=== PATIENT | female | born 1950 | race Caucasian/White ===

== ENCOUNTER 2019-03-09 18:27 | Inpatient (IN) | payer MEDICARE ==
[~2019-03-09] VITALS: Ht 172.7 cm; Wt 109.0 kg
[~2019-03-09 18:27] MED LIST: ALBU0.63 NEB; CEFD300C37 PO; FLUT1DIS IH; GUAI400T66 PO; PRED10TA PO; TIOT18CA INH
--- NOTE | 2019-03-09 18:53 | NUR ---
PT BIB [facility] FROM WORK AFTER PT BEGAN TO C/O SOB AND EPIGASTRIC PAIN WHICH HAD BEEN OCCURING INTERMITTENTLY OVER THE LAST 2 WEEKS. PT IS SUPPOSE TO WEAR OXYGEN 10/05 BUT DOES WEAR IT AT WORK. PT ON MONITOR. PT SEEN BY DR. SAAVEDRA, WAITING FOR ORDERS.
[2019-03-09] MEDS ORDERED: ASPIRIN 81 MG TABLET CHEW ONE (19:17)
[2019-03-09] MEDS ORDERED: ASPIRIN 81 MG TABLET CHEW PO ONE (19:30)
[2019-03-09 19:37] LABS: BASOPHILS # (AUTO) 0.04 x10^3/uL (0-0.1); BASOPHILS % (AUTO) 0 % (0-1); EOSINOPHILS # (AUTO) 0.11 x10^3/uL (0-0.4); EOSINOPHILS % (AUTO) 1 % (1-7); LYMPHOCYTES # (AUTO) 0.99 x10^3/uL (1-3.4); LYMPHOCYTES % (AUTO) 10 % (22-44); MD NO; MEAN CORPUSCULAR HEMOGLOBIN 29.7 pg (27.0-34.8); MEAN CORPUSCULAR HGB CONC 33.1 g/dL (32.4-35.8); MEAN CORPUSCULAR VOLUME 89.7 fL (80-100); MEAN PLATELET VOLUME 10.2 fL (7.4-10.4); MONOCYTES # (AUTO) 0.59 x10^3/uL (0.2-0.8); MONOCYTES % (AUTO) 6 % (2-9); NEUTROPHILS # (AUTO) 8.66 x10^3/uL (1.8-6.8); NEUTROPHILS % (AUTO) 83 % (42-75); PLATELET COUNT 212 x10^3/uL (130-400); RED BLOOD COUNT 5.31 x10^6/uL (3.82-5.3); RED CELL DISTRIBUTION WIDTH 14.1 % (9.6-15.2)
[2019-03-09 19:49] LABS: ALANINE AMINOTRANSFERASE 26 U/L (12-78); ALBUMIN 3.2 g/dL (3.4-5.0); ANION GAP 6 mmol/L (5-15); CALCIUM 9.2 mg/dL (8.5-10.1); CHLORIDE 106 mmol/L (98-107); CREATININE 0.65 mg/dL (0.55-1.02)
[2019-03-09 19:53] LABS: ALKALINE PHOSPHATASE 113 U/L (45-117); BILIRUBIN,TOTAL 0.3 mg/dL (0.2-1.0); TOTAL PROTEIN 6.5 g/dL (6.4-8.2); TROPONIN I < 0.015 ng/mL (0.000-0.045)
[2019-03-09] MEDS ORDERED: methylPREDNISolone SOD SUCC 125 MG/2 ML ONE (19:56)
[2019-03-09] MEDS ORDERED: methylPREDNISolone SOD SUCC 125 MG/2 ML IVP ONE (20:00)
[2019-03-09] MEDS ORDERED: FLUT1BLS3 IH (20:03)
[2019-03-09] MEDS ORDERED: ALBU8.5H8 INH (20:03)
[2019-03-09] MEDS ORDERED: OMEP20TA62 PO (20:03)
--- NOTE | 2019-03-09 20:08 | NUR ---
PT BECAME SOB ON EXERTION ON TRIP TO RESTROOM WITH OXYGEN. DR. SAAVEDRA AWARE AND SOLUMEDROL ORDERED AND GIVEN. PT TO BE ADMITTED. PT UPDATED ON POC.
[2019-03-09] MEDS ORDERED: BISACODYL 10 MG SUPP PR PRN (21:00)
[2019-03-09] MEDS ORDERED: morphine SULFATE 10 MG/ML, 1ML IVPush PRN (21:00)
[2019-03-09] MEDS ORDERED: ONDANSETRON ODT 4 MG PO PRN (21:00)
[2019-03-09] MEDS ORDERED: POLYETHYLENE GLYCOL 17 GM PACKET PO PRN (21:00)
[2019-03-09] MEDS ORDERED: NITROGLYCERIN 0.4 MG BOTTLE (25 TABS) SL PRN (21:00)
[2019-03-09] MEDS ORDERED: ALBUTEROL SULFATE 2.5 MG/3 ML NPPB PRN (21:00)
[2019-03-09] MEDS ORDERED: ACETAMINOPHEN 325 MG TABLET PO PRN (21:00)
[2019-03-09 21:34] VITALS: BP 143/81
[2019-03-09] MEDS ORDERED: [UNRECOGNIZED DRUG - CODE] PO (21:54)
[2019-03-09] MEDS: HEPARIN 5,000 UNITS/ML, 1ML SQ SCH (22:08)
[2019-03-09] MEDS: SODIUM CHLORIDE FLUSH 10ML SYR IVF SCH (22:08)
[2019-03-10 02:26] VITALS: BP 117/73
[2019-03-10 02:40] LABS: TROPONIN I < 0.015 ng/mL (0.000-0.045)
[2019-03-10] MEDS: HEPARIN 5,000 UNITS/ML, 1ML SQ SCH ×3 (05:53→20:55)
[2019-03-10] MEDS ORDERED: OMEPRAZOLE 20 MG CAPSULE.DR PO SCH (06:00)
[2019-03-10] MEDS ORDERED: ASPIRIN 81 MG TABLET EC PO SCH (06:00)
[2019-03-10] MEDS ORDERED: ASPIRIN 325 MG TABLET EC PO SCH (06:00)
[2019-03-10 07:15] LABS: CHLORIDE 108 mmol/L (98-107)
[2019-03-10 07:25] LABS: ALANINE AMINOTRANSFERASE 27 U/L (12-78); ALBUMIN 3.1 g/dL (3.4-5.0); ALKALINE PHOSPHATASE 106 U/L (45-117); ANION GAP 7 mmol/L (5-15); BILIRUBIN,TOTAL 0.3 mg/dL (0.2-1.0); CHOL/HDL RATIO 3.2; CHOLESTEROL, TOTAL 174 mg/dL (140-239); CREATININE 0.53 mg/dL (0.55-1.02); HDL CHOL % 32 % (28-40); HDL CHOLESTEROL (DIRECT) 55 mg/dL (40-60); LDL CHOLESTEROL,CALCULATED 107 mg/dL (54-169); LDL/HDL RATIO 1.9 (0.5-3.0); TOTAL PROTEIN 6.3 g/dL (6.4-8.2); TRIGLYCERIDES 58 mg/dL (50-200); VLDL CHOLESTEROL 12 mg/dL (0-25)
[2019-03-10 07:41] VITALS: BP 105/78
[2019-03-10 07:52] LABS: MEAN CORPUSCULAR HEMOGLOBIN 29.7 pg (27.0-34.8); MEAN PLATELET VOLUME 11.3 fL (7.4-10.4); PLATELET COUNT 191 x10^3/uL (130-400); RED BLOOD COUNT 5.26 x10^6/uL (3.82-5.3); RED CELL DISTRIBUTION WIDTH 14.5 % (9.6-15.2)
[2019-03-10 07:55] LABS: MD YES
[2019-03-10 07:56] LABS: <PLATELET ESTIMATE> ADEQUATE; <RBC MORPHOLOGY> NORMAL; LARGE PLATELETS 1+; LYMPH#(MANUAL) 0.19 x10^3/uL (1-3.4); LYMPHS% (MANUAL) 2 % (22-44); MONOS% (MANUAL) 1 % (2-9); SEG#(MANUAL) 9.41 x10^3/uL (1.8-6.8); SEGS% (MANUAL) 97 % (42-75)
[2019-03-10] MEDS: SODIUM CHLORIDE FLUSH 10ML SYR IVF SCH (08:00)
[2019-03-10 08:39] VITALS: BP 114/73
[2019-03-10] MEDS ORDERED: REGADENOSON 0.4 MG/5 ML SYRINGE ONE (08:45)
[2019-03-10 08:56] LABS: TROPONIN I < 0.015 ng/mL (0.000-0.045)
[2019-03-10] MEDS ORDERED: SENNA/DOCUSATE TABLET PO SCH (09:00)
[2019-03-10] MEDS ORDERED: TEMPLATE NON-FORMULARY MED. (Fluticasone/Umeclidin/Vilanter (Trelegy Ellipta 100-62.5-25 IH SCH (09:00)
[2019-03-10 15:07] VITALS: BP 131/83
[2019-03-10 15:17] LABS: HEMOGLOBIN A1C 7.4 % (4.2-6.3)
[2019-03-10] MEDS: INSULIN LISPRO 100 UNITS/ML, PEN SQ-INSULIN SCH ×2 (16:00→20:54)
[2019-03-10] MEDS ORDERED: FENTANYL PF 100 MCG/2ML ONE (16:53)
[2019-03-10] MEDS ORDERED: TICAGRELOR 90 MG TABLET ONE (16:53)
[2019-03-10] MEDS ORDERED: MIDAZOLAM 1 MG/ML, 5ML ONE (16:53)
[2019-03-10] MEDS ORDERED: VERAPAMIL 2.5 MG/ML, 2ML ONE (16:53)
[2019-03-10] MEDS ORDERED: BIVALIRUDIN 250 MG ONE (16:53)
[2019-03-10] MEDS ORDERED: HEPARIN 1,000 UNITS/ML, 10ML ONE (16:54)
[2019-03-10] MEDS ORDERED: SODIUM CHLORIDE 0.9% 1,000 ML IV SCH (17:22)
[2019-03-10] MEDS ORDERED: ATOR20TA37 PO (17:41)
[2019-03-10] MEDS ORDERED: ASPI81TA45 PO (17:41)
[2019-03-10] MEDS ORDERED: METF850T10 PO (17:42)
[2019-03-10] MEDS ORDERED: METOPROLOL TARTRATE 25 MG TABLET PO SCH (18:00)
[2019-03-10 20:17] VITALS: BP 125/73
[2019-03-11] MEDS ORDERED: ISOSORBIDE MONONITRATE ER 30 MG TABLET PO SCH (09:00)
== END 2019-03-10 21:32 | disposition home or self-care (01) | DRG 392 ==
LOC: ED 20:38 → EDIP 20:43 → ED 20:48 → 5SO 21:16
PROVIDERS: ADMIT Internal Medicine; ATTEND Internal Medicine
PROC: 4A023N7 Measurement of Cardiac Sampling and Pressure, Left Heart, Percutaneous Approach (ICD-10-PCS; principal; 2019-03-09)
PROC: B2111ZZ Fluoroscopy of Multiple Coronary Arteries using Low Osmolar Contrast (ICD-10-PCS; 2019-03-09)
PROC: B2151ZZ Fluoroscopy of Left Heart using Low Osmolar Contrast (ICD-10-PCS; 2019-03-09)
DX: K21.9 Gastro-esophageal reflux disease without esophagitis (principal); J96.10 Chronic respiratory failure, unspecified whether with hypoxia or hypercapnia; E11.65 Type 2 diabetes mellitus with hyperglycemia; E78.5 Hyperlipidemia, unspecified; F17.200 Nicotine dependence, unspecified, uncomplicated; I25.10 Atherosclerotic heart disease of native coronary artery without angina pectoris; I44.7 Left bundle-branch block, unspecified; J44.9 Chronic obstructive pulmonary disease, unspecified; Z79.84 Long term (current) use of oral hypoglycemic drugs; I25.2 Old myocardial infarction; Z90.710 Acquired absence of both cervix and uterus; Z99.81 Dependence on supplemental oxygen; Z90.49 Acquired absence of other specified parts of digestive tract; Z79.899 Other long term (current) drug therapy
CPT/HCPCS: 36415; 71045; 78452; 80053; 80061; 82962; 83036; 83690; 83880; 84484; 85025; 93005; 93017; 93458; 96374; C1769; C1894; G0378; J0583; J1644; J2250; J2785; J3010; A9502; C9898; J2930; Q9967